=== PATIENT | female | born 1950 | race Caucasian/White ===

== ENCOUNTER 2017-10-08 00:51 | Day surgery (SDC) | payer BC ==
[2014-08-17 13:54] VITALS: Ht 180.3 cm; Wt 91.2 kg
[~2017-10-08] VITALS: Ht 180.3 cm; Wt 91.2 kg
[~2017-10-08 00:51] MED LIST: ASPI-1471 PO; ASPI-764 PO; ASPI81TA94 PO; ATEN-1 PO; ATOR20TA65 PO; CALC500T6 PO; ESTR10TA4 VG; ESTROVEN ENER PO; GLUC15002 PO; GOLYTE PO; HYDR-2966 PO; HYDR-318 PO; HYDR12.556 PO; LIDOCAINE/SOD BICARB 8.4% SYR ID ONE; LISI-355 PO; LISI-362 PO; MIDAZOLAM 2 MG/2 ML VIAL IVP PRN; MULT-820 PO; NAPR220C12 PO; NORMOSOL R SOLN(*) 1000 ML BAG 1,000 ML IV PRN; OMEG-96 PO; OXYC-823 PO; ZOST19404 SQ
[2017-10-08] MEDS ORDERED: MIDAZOLAM 2 MG/2 ML VIAL IVP PRN (06:45)
[2017-10-08] MEDS ORDERED: LIDOCAINE/SOD BICARB 8.4% SYR ID ONE (06:45)
[2017-10-08] MEDS ORDERED: NORMOSOL R SOLN(*) 1000 ML BAG 1,000 ML IV PRN (06:45)
[2017-10-08 09:58] VITALS: BP 140/96
[2017-10-08] MEDS ORDERED: PROPOFOL EMUL(*) 10MG/ML 20 ML 120 ML ONE (12:38)
[2017-10-08 12:47] VITALS: BP 86/55
[2017-10-08 12:56] VITALS: BP 97/65
--- NOTE | 2017-10-08 12:59 | Short(Outpt) Discharge Summary ---
Discharge Summary Reason for Hosp/Final Diag: (1) Family history of malignant neoplasm of gastrointestinal tract Hospital Course & Plan: Colonoscopy with polypectomy x4 completed without problems. Departure Discharge to: Home, Self Care Discharge Instructions Home Meds Active Scripts Peg/Electrolytes (GOLYTELY SOLUTION) 4,000 Ml Soln, 1 GAL PO ONCE, #1 GAL 0 Refills Prov:ANDRE VERNON MD 09/19/17 Atorvastatin Calcium (ATORVASTATIN CALCIUM) 20 Mg Tablet, 1 TAB PO QHS, #90 TAB 3 Refills Prov:CIERRA COMBS APRN TRUCK DISPATCHER-C 02/24/17 Lisinopril/Hydrochlorothiazide (LISINOPRIL-HCTZ 20-25 MG TAB) 1 Each Tablet, 1 TAB PO DAILY, #90 TAB 4 Refills Prov:CIERRA COMBS APRNP-C 12/02/16 Atenolol (ATENOLOL) 50 Mg Tablet, 1 TAB PO DAILY, #90 TAB 4 Refills Prov:CIERRA COMBS APRNP-C 12/02/16 Reported Medications Aspirin (ASPIR 81) 81 Mg Tablet.dr, 1 TAB PO QDAY, TAB 02/15/16 Naproxen Sodium (ALEVE) 220 Mg Capsule, 2 TAB PO BID Y for PAIN, CAPSULE 09/06/15 Glucosamine Hcl (GLUCOSAMINE HCL) 1,500 Mg Tablet, 1 TAB PO DAILY 07/27/14 Mv,Ca,Min/Fa/Herbal No.158 (ESTROVEN ENERGY CAPSULE) 400 Mcg Capsule, 1 CAP PO QDAY, CAPSULE 07/27/14 Calcium Carbonate (CALCIUM) 500 Mg Tablet, 1 MG PO QDAY 07/27/14 [place]-3 Fatty Acids/Fish Oil (OMEGA 3 1,000 MG SOFTGEL) 1 Each Capsule, 1 EACH PO QDAY, CAPSULE 07/27/14 Multivitamin (MULTIVITAMINS) 1 Each Tablet, 1 TAB PO DAILY 07/27/14 Diet: Regular Activity: As Tolerated Special Instructions: Your colonoscopy was completed without any problems and your prep was excellent (Good Job!!). I removed 4 fairly large polyps from your colon and they were all sent to pathology. My office will call you in the next week to let you know what the polyps are and when your next colonoscopy should be. I may want to look again even as soon as 1 year given the size of some of the polyps to make sure nothing is growing back to keep you safe from getting cancer. I would also recommend that your children and siblings start getting colonoscopies starting at 40 years old and every 5 years. Copies to: CIERRA COMBS APRN, JOHN A MD Oct 08, 2017 12:59
[2017-10-08 13:12] VITALS: BP 117/73
[2017-10-08 13:14] VITALS: BP 113/83
== END 2017-10-08 13:26 | disposition home health service (06) ==
LOC: OR 00:51
PROVIDERS: ATTEND Surgery
DX: Z12.11 Encounter for screening for malignant neoplasm of colon (principal); Z80.0 Family history of malignant neoplasm of digestive organs; D12.3 Benign neoplasm of transverse colon; D12.5 Benign neoplasm of sigmoid colon; K63.5 Polyp of colon
CPT/HCPCS: 00811; 45385; 88305; J2704

== ENCOUNTER → 2018-03-09 | Outpatient (CLI) | payer BC ==
[2014-08-17 13:54] VITALS: BMI 27.9
[~2018-03-09] MED LIST changes: -LIDOCAINE/SOD BICARB 8.4% SYR ID ONE; -MIDAZOLAM 2 MG/2 ML VIAL IVP PRN; -NORMOSOL R SOLN(*) 1000 ML BAG 1,000 ML IV PRN
[2018-03-09 08:34] LABS: PLATELET COUNT, AUTOMATED 268 K/uL (150-450)
== END ==
LOC: LAB 07:59
PROVIDERS: ATTEND Nurse Practitioner Family
DX: I10 Essential (primary) hypertension (principal)
CPT/HCPCS: 36415; 82040; 82247; 82310; 82374; 82435; 82465; 82565; 82947; 83718; 84075; 84132; 84155; 84295; 84443; 84450; 84460; 84478; 84520; 85025

== ENCOUNTER → 2018-08-18 | Outpatient (CLI) | payer BC, MEDICARE ==
[2014-08-17 13:54] VITALS: BMI 27.9
[2018-08-18 08:53] LABS: PLATELET COUNT, AUTOMATED 274 K/uL (150-450)
== END ==
LOC: LAB 08:40
PROVIDERS: ATTEND Nurse Practitioner Family
DX: I10 Essential (primary) hypertension (principal)
CPT/HCPCS: 36415; 82040; 82247; 82310; 82374; 82435; 82565; 82947; 84075; 84132; 84155; 84295; 84443; 84450; 84460; 84520; 85025

== ENCOUNTER → 2018-08-19 | Outpatient (CLI) | payer BC, MEDICARE ==
[2014-08-17 13:54] VITALS: BMI 27.9
--- NOTE | 2018-08-19 13:24 | EKG ---
FACILITY: [facility] [place] PATIENT NAME: OPAL AGUILAR : [id number] MR: [id number] V: [id number] EXAM DATE: ORDERING PHYSICIAN: TRUE DALEY TECHNOLOGIST: ENRRIQUE Delarosa Reason : PRE-OP Blood Pressure : / mmHG Vent. Rate : 059 BPM Atrial Rate : 059 BPM P-R Int : 196 ms QRS Dur : 092 ms QT Int : 442 ms P-R-T Axes : 054 055 071 degrees QTc Int : 437 ms Sinus bradycardia Otherwise normal ECG When compared with ECG of 25-JUL-2014 10:36, No significant change was found Confirmed by ANDRE TANG ([id number]) on 08/20/2018 6:36:21 AM Referred By: EDI Confirmed By:ANDRE TANG
== END ==
LOC: LAB 10:59
PROVIDERS: ATTEND Orthopaedic Surgery
DX: Z01.812 Encounter for preprocedural laboratory examination (principal); Z01.810 Encounter for preprocedural cardiovascular examination; R00.1 Bradycardia, unspecified; M17.11 Unilateral primary osteoarthritis, right knee
CPT/HCPCS: 81001; 93005

== ENCOUNTER 2018-09-08 01:39 | Inpatient (IN) | payer BC, MEDICARE ==
[2018-09-07 13:26] LABS: INR 0.93
--- NOTE | 2018-09-07 14:15 | LEVENE H&P ---
DATE OF ADMISSION: September 08, 2018 IDENTIFICATION/CHIEF COMPLAINT The patient is a 68-year-old woman with a chief complaint of right knee pain. HISTORY OF PRESENT ILLNESS The patient has a longstanding history of knee arthritis that has been progressively painful and debilitating, refractory to conservative measures. Surgery is indicated to relieve symptoms after failure of nonoperative measures. PAST MEDICAL HISTORY Notable for hypertension well controlled on medication. PAST SURGICAL HISTORY 1. Noted for contralateral knee replacement. 2. Colonoscopy times 2. 3. Hysterectomy. ALLERGIES NO KNOWN DRUG ALLERGIES CURRENT MEDICATIONS 1. Lisinopril/Hydrochlorothiazide 25 mg p.o. q day. 2. Atenolol 1 p.o. q day. 3. Aspirin 81 mg p.o. q day. 4. Vitamins. FAMILY HISTORY Notable for a father with OK and colon cancer. Mother with hypertension and stroke. SOCIAL HISTORY Notable for smoking a pack a day for 30 years. She quit at age 52. She drinks alcohol on occasional social circumstance, otherwise negative. Denies abuse. REVIEW OF SYSTEMS Noncontributory. PHYSICAL EXAMINATION GENERAL: This is a well-developed, well-nourished female who appears stated age. HEENT: Normocephalic, atraumatic. Extraocular muscles intact. NECK: Supple, non-tender. LUNGS: Clear to auscultation bilaterally. HEART: Regular rate and rhythm. ABDOMEN: Benign. ORTHOPEDIC EXAMINATION The right knee has valgus alignment. This is passively correctable. She has an effusion present. She is mildly stiff in the end range, but has supple range of motion, extensive function is intact. RADIOGRAPHS Demonstrate endstage knee degenerative joint disease and valgus alignment. ASSESSMENT Right knee endstage degenerative joint disease progressively painful and debilitating, refractory to conservative care. PLAN Per patient request, we are going to proceed with total knee arthroplasty. The nature of the procedure, the risks, benefits, the anticipated rehabilitative course were reviewed. Risks include but are not limited to , major medical or anesthetic complication, infection, neurovascular injury, blood transfusion, stiffness, scarring, fracture, tendon rupture, instability, implant loosening, migration or failure, persistent or recurrent pain or symptoms, need for additional surgery and other unforeseen. She understands and wishes to proceed. A signed permit is placed in the chart. No guarantees are given or implied. JAYME
[2018-09-08] VITALS (13 sets, daily range): BP systolic 91–126; BP diastolic 52–84; Ht 180.3 cm; Wt 93.9 kg
[~2018-09-08] VITALS: Ht 180.3 cm; Wt 93.9 kg
[2018-09-08] MEDS ORDERED: ACETAMINOPHEN 500 MG TAB PO ONE (08:45)
[2018-09-08] MEDS ORDERED: MIDAZOLAM 2 MG/2 ML VIAL IVP PRN (08:45)
[2018-09-08] MEDS ORDERED: PREGABALIN 150 MG CAPSULE PO ONE (08:45)
[2018-09-08] MEDS ORDERED: FAMOTIDINE 20 MG TAB PO ONE (08:45)
[2018-09-08] MEDS ORDERED: NORMOSOL R SOLN(*) 1000 ML BAG 1,000 ML IV PRN ×2 (08:45→13:10)
[2018-09-08] MEDS ORDERED: CELECOXIB 200 MG CAP PO ONE (08:45)
[2018-09-08] MEDS ORDERED: ceFAZolin(*) 2GM/D5W 50ML 50 ML IVPB ONE (08:45)
[2018-09-08] MEDS ORDERED: ROPIVACAINE/EPI/CLONIDINE/KET 50 ML SYRINGE INJ ONE (08:45)
[2018-09-08] MEDS ORDERED: TRANEXAMIC AC 1000 MG/10ML SDV 1,000 MG in DEXTROSE 5% 50 ML BAG 50 ML IV ONE (08:45)
[2018-09-08] MEDS ORDERED: LIDOCAINE/SOD BICARB 8.4% SYR ID ONE (08:45)
[2018-09-08] MEDS ORDERED: KETAMINE HCL-NS 50 MG/5 ML SYR ONE (08:48)
[2018-09-08] MEDS ORDERED: fentaNYL CITR 100 MCG/2 ML AMP ONE (08:48)
[2018-09-08] MEDS ORDERED: DEXAMETHASONE SOD PHOS 10MG/ML ONE (08:48)
[2018-09-08] MEDS ORDERED: ONDANSETRON 4 MG/2 ML VIAL ONE (08:48)
[2018-09-08] MEDS ORDERED: PROPOFOL EMUL(*) 10MG/ML 20 ML 20 ML ONE (08:48)
[2018-09-08] MEDS ORDERED: LIDOCAINE MPF 1% 5 ML VIAL ONE (08:48)
[2018-09-08] MEDS ORDERED: VANCOMYCIN 1 GM VIAL ONE (10:16)
[2018-09-08] MEDS ORDERED: ePHEDrine 25 MG/5 ML DISP.SYR IVP ONE (10:52)
[2018-09-08] MEDS ORDERED: NS 0.9% IRRIGATION 1000ML PLCT IR ONE (11:43)
[2018-09-08] MEDS ORDERED: LACTATED RINGER 3000 ML BAG IR ONE (11:44)
[2018-09-08] MEDS ORDERED: diphenhydrAMINE 50 MG/ML VIAL IVP PRN (13:10)
[2018-09-08] MEDS ORDERED: ZOLPIDEM TARTRATE 5 MG TAB PO PRN (13:10)
[2018-09-08] MEDS ORDERED: FLUSH 10 ML SYR IVP PRN (13:10)
[2018-09-08] MEDS ORDERED: DIAZEPAM 5 MG TAB PO PRN (13:10)
[2018-09-08] MEDS ORDERED: BENZOCAINE/MENTHOL 1 EACH LOZG PO PRN (13:10)
[2018-09-08] MEDS ORDERED: PROMETHAZINE 25 MG/ML 1 ML AMP IVP PRN (13:10)
[2018-09-08] MEDS ORDERED: BISACODYL 10 MG SUPP PR PRN (13:10)
[2018-09-08] MEDS ORDERED: diphenhydrAMINE 25 MG CAP PO PRN (13:10)
[2018-09-08] MEDS ORDERED: ACETAMINOPHEN 325 MG TAB PO PRN (13:10)
[2018-09-08] MEDS ORDERED: MAGNESIUM HYDROXIDE* 30ML UDCP PO PRN (13:10)
--- NOTE | 2018-09-08 13:22 | OPERATIVE REPORT 1 ---
EVENT DATE: September 08, 2018 SURGEON: Arturo Terry MD ANESTHESIOLOGIST: Gil Padron MD ANESTHESIA: General plus spine. OUTREACH TEAM MEMBER: Subhash Carrillo PA-C PREOPERATIVE DIAGNOSIS Right knee degenerative joint disease. POSTOPERATIVE DIAGNOSIS Right knee degenerative joint disease. PROCEDURE PERFORMED Right total knee arthroplasty. ESTIMATED BLOOD LOSS Minimal. DRAINS None. SPECIMENS None. COMPLICATIONS None apparent. TOURNIQUET TIME 46 minutes. IMPLANTS USED [employer] software Triathlon Knee System with a 6 right PS femur, 7 standard tibial baseplate, a 36 mm universal symmetric all polyethylene patella button, 11 mm PS tibial tray, polyethylene X3. INDICATIONS Desi is a 68-year-old woman with intractable pain and disability related to endstage knee arthritis. Surgery is indicated to relieve symptoms after failure of nonoperative measures. DESCRIPTION OF PROCEDURE The patient was taken to the operating room and placed supine on the operating table. A spinal block was administered by the anesthesiologist. General anesthesia was induced. Standard antibiotics and TXA were administered IV. The right lower extremity was prepped and draped in the usual sterile fashion for knee arthroplasty. The limb was exsanguinated with an Esmarch bandage. The tourniquet was inflated to 250 mmHg. A midline longitudinal incision was made and carried down through the skin and subcutaneous tissue to the extensor mechanism. A full-thickness flap was developed far enough medially to allow medial parapatellar arthrotomy to be performed. The patella was everted. The knee was brought into flexed position. The fat pad, anterior horns of the menisci and cruciate ligaments were debrided. Subperiosteal capsule was released and performed circumferentially 1 cm around the upper plateau to start to balance the knee. A step drill was used to enter the distal femur. A 10- inch long alignment guide was used to engage the isthmus. The cut was set for 6 degrees of valgus relative to anatomic axis. A 10 mm resection block was applied and pinned. Cut was made with an oscillating saw. The AP sizing guide was applied to the distal femur, positioned for 3 degrees of external rotation over the posterior condyles. There was no hypoplasia of the condyle and this matches up nicely with the wide sized alignment in the epicondylar axis. The size 6 is optimal without risk of notching. The four-in-one cutting block was applied. Anterior, posterior, posterior chamfer and anterior chamfer cuts were made respectively. A PS block was applied and centered mediolateral and the bone was removed from the box. The trial femur has nice [id number] fit. Attention was turned to the tibial preparation. The extramedullary guide was applied and positioned for varus, valgus, posterior slope and rotation. This was set to resect 2 mm from the relatively deficient lateral tibial plateau and dropped down another 1 to 2 mm to ensure an adequate cut. The block was pinned. Extramedullary alignment check is made and cuts made with an oscillating saw. After osteophyte removal, the lateral space remains tight in both flexion and extension. The popliteus is recessed and the IT band is released off Gerdy's tubercle. The gap subsequently balanced in flexion and extension with no additional releases required. The final tibial preparation consisted of ensuring appropriate rotational and translational position of the component. The box was reamed, cut and is punched. The patella is taken from the starting thickness of 24 to a residual of 14 with a patellar clamp and oscillating saw. A 36 provides optimal bony coverage without soft tissue overhang. The lug holes were drilled. The patella tracts nicely with a no-touch technique. Surfaces were then copiously lavaged. The components were cemented in a single stage. The 11 PS tibial tray liner fills up the gap ideally without allowing the knee to drop to full extension without hyperextension, providing optimal soft tissue tension and stability. The tourniquet was deflated. The tray was lavaged. All loose debris was removed from the joint and knee. Final liner is impacted into the baseplate. Joint is reduced. Arthrotomy was closed in flexion with #2 Ethibond, subcutaneous tissue with 3-0 Vicryl and the skin with surgical edmundo. Xeroform was applied followed by a dry, sterile dressing and a compression wrap. The patient was awakened from the anesthesia and taken to the recovery room in stable condition, having tolerated the procedure well. Plan is for standard TKA rehab protocol. [facility]
--- NOTE | 2018-09-08 14:27 | Hospitalist Consultation ---
History of Present Illness Requesting Physician Dr. Terry Reason for Consult Medical Management Chief Complaint s/p right total knee replacement History of Present Illness She was admitted s/p right total knee replacement. It is reported the surgery went well and without complication. History Problems: (1) HTN (hypertension) Status: Chronic Home Meds Active Scripts Atenolol (ATENOLOL) 50 Mg Tablet, 1 TAB PO DAILY, #90 TAB 2 Refills Prov:CIERRA COMBS APRN-C 08/24/18 Lisinopril/Hydrochlorothiazide (LISINOPRIL-HCTZ 20-25 MG TAB) 1 Each Tablet, 1 TAB PO DAILY, #90 TAB 2 Refills Prov:CIERRA COMBS APRN-C 08/24/18 Reported Medications Aspirin (ASPIR 81) 81 Mg Tablet., 1 TAB PO QODAY, TAB 02/15/16 Naproxen Sodium (ALEVE) 220 Mg Capsule, 2 TAB PO BID PRN for PAIN, CAPSULE 09/06/15 Glucosamine Hcl (GLUCOSAMINE HCL) 1,500 Mg Tablet, 1 TAB PO DAILY 07/27/14 Mv,Ca,Min/Fa/Herbal No.158 (ESTROVEN ENERGY CAPSULE) 400 Mcg Capsule, 1 CAP PO QDAY, CAPSULE 07/27/14 Calcium Carbonate (CALCIUM) 500 Mg Tablet, 1 MG PO QDAY 07/27/14 [place]-3 Fatty Acids/Fish Oil (OMEGA 3 1,000 MG SOFTGEL) 1 Each Capsule, 1 EACH PO QDAY, CAPSULE 07/27/14 Discontinued Reported Medications Multivitamin (MULTIVITAMINS) 1 Each Tablet, 1 TAB PO DAILY 07/27/14 Discontinued Scripts Atorvastatin Calcium (ATORVASTATIN CALCIUM) 20 Mg Tablet, 1 TAB PO QHS, #90 TAB 3 Refills Prov:CIERRA COMBS APRN-C 02/24/17 Allergies: Coded Allergies: No Known Drug Allergies (Unverified , 07/27/14) Patient History: FH: colon cancer FATHER, Onset:69 FH: coronary artery bypass surgery FATHER FH: depression MOTHER, , Age:59 FH: heart attack FATHER FH: hypertension MOTHER, , Age:59 FH: leukemia BROTHER OR SISTER (in remission) FH: stroke MOTHER, , Age:59 Malignant neoplasm of gastrointestinal tract No pertinent family history BROTHER OR SISTER BROTHER OR SISTER BROTHER OR SISTER BROTHER OR SISTER Hx Smoking: Yes Smoking Status: Former Smoker Caffeine Intake: Coffee Caffeine/Cups Per Day: 4C Hx Alcohol Use: Yes Hx Substance Use Disorder: No Social Drug Use: Never Review of Systems All Systems Reviewed/Normal: Yes, Except as Noted Exam Vital Signs Vital Signs Date Time Temp Pulse Resp B/P (MAP) Pulse Ox O2 Delivery O2 Flow Rate FiO2 09/08/18 14:11 97 Nasal Cannula 3.0 09/08/18 14:00 55 18 09/08/18 13:57 97.6 104/78 (87) General Appearance: Alert, Awake, No Acute Distress, Afebrile Neuro: No Gross deficits Cardiovascular: Regular Rate and Rhythm Respiratory: No Respiratory Distress, Clear to Auscultation GI: Abd Soft and Non-Tender Psych: Alert & Oriented X3, Appropriate Mood & Affect Assessment and Plan Problems: (1) S/P total knee arthroplasty Status: Acute Assessment & Plan: Followed by Dr. Terry. She will be placed on Aspirin for DVT prophylaxis. She has no history of DVT or PE. (2) HTN (hypertension) Status: Chronic Assessment & Plan: She is on chronic treatment with Atenolol, Lisinopril/HCTZ. Atenolol and Lisinopril have been restarted with hold parameters. We will hold HCTZ at this time. Venous Thromboembolism Antithrombotics Is Pt On Any Antithrombotics?: No Exam Sepsis Risk: No Definite Risk Problem Qualifiers (1) S/P total knee arthroplasty: Laterality: right Qualified Codes: Z96.651 - Presence of right artificial knee joint (2) HTN (hypertension): Hypertension type: essential hypertension Qualified Codes: I10 - Essential (primary) hypertension SHARI LOPEZ FICTION AND NONFICTION AUTHOR Sep 08, 2018 14:27
--- NOTE | 2018-09-08 14:28 | RADIOLOGY IMAGING REPORT ---
FACILITY: PATIENT NAME: Desi Oleary : 1950 MR: [id number] V: [id number] EXAM DATE: ORDERING PHYSICIAN: TRUE DALEY TECHNOLOGIST: Location: [facility] Patient: Desi Oleary : 1950 Visit/Account:[id number] Date of Sevice: 09/08/2018 KNEE LIMITED RIGHT HISTORY: POST-OP KNEE PLACEMENT Additional history: None COMPARISON: None. FINDINGS: Patient status post a right knee arthroplasty. Orthopedic hardware unremarkable. Iatrogenic air is seen in the joint. Normal anatomic alignment. IMPRESSION: Status post right total knee arthroplasty unremarkable in appearance. Report Dictated By: Rob Hinojosa MD at 09/08/2018 2:23 PM Report E-Signed By: Rob Hinojosa MD at 09/08/2018 2:24 PM WSN:SCOUT
[2018-09-08] MEDS: CELECOXIB 200 MG CAP PO SCH (16:20)
[2018-09-08] MEDS: APAP/HYDROCODONE 325/7.5 TAB PO PRN (17:20)
--- NOTE | 2018-09-08 17:20 | NUR ---
Physical Therapy Impression PT eval completed. Pt ambulated to/from BR with CGA/SBA. Physical Therapy Goals 1. Pt to be SBA/Mod indep for bed mobility 2. Pt to be SBA/Mod indep for transfers 3. Pt to be SBA/Mod indep for ambulation x 100' with FWW 4. Pt to deng up/down platform step to access home Patient's Goals
[2018-09-08] MEDS: ceFAZolin(*) 1 GM VIAL 1 GM in NS(*) 0.9% 100 ML ADDVANT BAG 100 ML IVPB SCH (18:18)
[2018-09-09] MEDS: ceFAZolin(*) 1 GM VIAL 1 GM in NS(*) 0.9% 100 ML ADDVANT BAG 100 ML IVPB SCH ×2 (03:27→11:02)
[2018-09-09 03:28] VITALS: BP 90/59
[2018-09-09] MEDS: APAP/HYDROCODONE 325/7.5 TAB PO PRN ×5 (03:49→23:32)
[2018-09-09 07:44] VITALS: BP 100/88
[2018-09-09] MEDS: ASPIRIN 325 MG TAB PO SCH (08:45)
[2018-09-09] MEDS: CELECOXIB 200 MG CAP PO SCH ×2 (08:45→17:34)
[2018-09-09] MEDS: LISINOPRIL 20 MG TAB PO SCH (09:00)
[2018-09-09] MEDS: ATENOLOL 50 MG TAB PO SCH (09:00)
[2018-09-09 10:30] VITALS: BP 96/58
--- NOTE | 2018-09-09 11:02 | Hospitalist Progress Note ---
Subjective Progress Notes Subjective She has no complaints this morning. She had no acute events overnight. Patient Complains of: Cardiovascular: No: Chest Pain Respiratory: No: Shortness of Breath Physical Exam Vital Signs Date Time Temp Pulse Resp B/P (MAP) Pulse Ox O2 Delivery O2 Flow Rate FiO2 09/09/18 10:30 97.6 55 16 96/58 (71) 96 Nasal Cannula 1.5 Intake and Output 09/09/18 07:00 Intake Total 2605 ml Balance 2605 ml Intake Oral 480 ml IV Total 2125 ml # Voids 1 General Appearance: Alert, Awake, No Acute Distress, Afebrile Neuro: No Gross deficits Cardiovascular: Regular Rate and Rhythm Respiratory: No Respiratory Distress, Clear to Auscultation Psych: Alert & Oriented X3, Appropriate Mood & Affect Result Diagram: 09/09/18 0543 Assessment and Plan Problems: (1) S/P total knee arthroplasty Status: Acute Assessment & Plan: Followed by Dr. Terry. She will be placed on Aspirin for DVT prophylaxis. She has no history of DVT or PE. (2) HTN (hypertension) Status: Chronic Assessment & Plan: She is on chronic treatment with Atenolol, Lisinopril/HCTZ. Atenolol and Lisinopril have been restarted with hold parameters. We will hold HCTZ at this time. Exam Sepsis Risk: No Definite Risk Problem Qualifiers (1) S/P total knee arthroplasty: Laterality: right Qualified Codes: Z96.651 - Presence of right artificial knee joint (2) HTN (hypertension): Hypertension type: essential hypertension Qualified Codes: I10 - Essential (primary) hypertension SHARI LOPEZ Sep 09, 2018 11:02
[2018-09-09 11:30] VITALS: BP 119/71
--- NOTE | 2018-09-09 11:50 | NUR ---
Physical Therapy Impression Pt making excellent progress with her own standard walker for ambulation x 150' and modified indep. Pt would benefit from addressing steps prior to d/c home. Physical Therapy Goals 1. Pt to be SBA/Mod indep for bed mobility 2. Pt to be SBA/Mod indep for transfers 3. Pt to be SBA/Mod indep for ambulation x 100' with FWW 4. Pt to deng up/down platform step to access home Patient's Goals
[2018-09-09 15:31] VITALS: BP 90/55
--- NOTE | 2018-09-09 17:33 | NUR ---
Physical Therapy Impression Pt arrived for earlier visit and pt requested PT to return later. When PT returned at 1733, pt had visitors and dinner and notes that she has been up several times with nursing and would like to defer stair trng until tomorrow. Physical Therapy Goals 1. Pt to be SBA/Mod indep for bed mobility 2. Pt to be SBA/Mod indep for transfers 3. Pt to be SBA/Mod indep for ambulation x 100' with FWW 4. Pt to deng up/down platform step to access home Patient's Goals
[2018-09-09 19:32] VITALS: BP 101/66
[2018-09-10 03:15] VITALS: BP 124/63
[2018-09-10] MEDS: APAP/HYDROCODONE 325/7.5 TAB PO PRN ×3 (03:28→11:10)
[2018-09-10 07:09] VITALS: BP 95/56
[2018-09-10] MEDS: ASPIRIN 325 MG TAB PO SCH (08:29)
[2018-09-10] MEDS: CELECOXIB 200 MG CAP PO SCH (08:29)
[2018-09-10] MEDS ORDERED: HYDR-389 PO (08:58)
[2018-09-10] MEDS: ATENOLOL 50 MG TAB PO SCH (09:00)
[2018-09-10] MEDS: LISINOPRIL 20 MG TAB PO SCH (09:00)
--- NOTE | 2018-09-10 09:19 | NUR ---
Physical Therapy Impression The patient is safe to d/c home from a mobility stand point when medically appropriate. Pt is Jaquelin for bed mobility, transfers and ambulation with use of RW. PT instructed patient in stair negotiation with good re-demonstration by pt. Pt will f/u with OP PT services. Home with CPM Physical Therapy Goals Patient's Goals
[2018-09-10] MEDS ORDERED: ASPI-757 PO (10:15)
[2018-09-10 11:09] VITALS: BP 100/73
--- NOTE | 2018-09-10 12:08 | Hospitalist Progress Note ---
Subjective Progress Notes Subjective She was admitted after knee replacement. She has no complaints this morning. She had no acute events overnight. Her blood pressures have been decreased throughout admission at 90's systolic. She has not required any blood pressure medication. Patient Complains of: Neurological: No: Dizziness Cardiovascular: No: Chest Pain Respiratory: No: Shortness of Breath Physical Exam Vital Signs Date Time Temp Pulse Resp B/P (MAP) Pulse Ox O2 Delivery O2 Flow Rate FiO2 09/10/18 11:09 100/73 (82) 09/10/18 07:30 93 Room Air 09/10/18 07:09 98.0 70 18 09/10/18 03:49 2.0 Intake and Output 09/10/18 00:00 Intake Total 1519 ml Balance 1519 ml Intake Oral 1310 ml IV Total 209 ml # Voids 5 General Appearance: Alert, Awake, No Acute Distress, Afebrile Neuro: No Gross deficits Cardiovascular: Regular Rate and Rhythm Respiratory: No Respiratory Distress, Clear to Auscultation Extremities: Warm, Perfused; No Edema Psych: Alert & Oriented X3, Appropriate Mood & Affect Result Diagram: 09/09/18 0543 Assessment and Plan Problems: (1) S/P total knee arthroplasty Status: Acute Assessment & Plan: Followed by Dr. Terry. She was placed on Aspirin for DVT prophylaxis. She has no history of DVT or PE. (2) HTN (hypertension) Status: Chronic Assessment & Plan: She is on chronic treatment with Atenolol, Lisinopril/HCTZ. Atenolol and Lisinopril were restarted with hold parameters, but were not given. At this time, I have instructed patient to hold all blood pressure medications. She has been 90's systolic. Her pulse has been average 55-60. She will follow up with her PCP next week regarding her BP. Copies to: CIERRA COMBS APRN DESK MONITOR-C ; Exam Sepsis Risk: No Definite Risk Problem Qualifiers (1) S/P total knee arthroplasty: Laterality: right Qualified Codes: Z96.651 - Presence of right artificial knee joint (2) HTN (hypertension): Hypertension type: essential hypertension Qualified Codes: I10 - Essential (primary) hypertension SHARI LOPEZ DESK MONITOR Sep 10, 2018 12:08
== END 2018-09-10 11:20 | disposition home or self-care (01) | DRG 470 ==
LOC: OR 01:39 → MED 13:50 → OBSVTOIN 13:50
PROVIDERS: ADMIT Orthopaedic Surgery; ATTEND Orthopaedic Surgery
PROC: 0SRC0J9 Replacement of Right Knee Joint with Synthetic Substitute, Cemented, Open Approach (ICD-10-PCS; principal; 2018-09-08 10:39)
DX: M17.11 Unilateral primary osteoarthritis, right knee (principal); I10 Essential (primary) hypertension; E78.00 Pure hypercholesterolemia, unspecified; Z96.651 Presence of right artificial knee joint; Z87.891 Personal history of nicotine dependence; Z90.710 Acquired absence of both cervix and uterus
CPT/HCPCS: 36415; 82310; 82374; 82435; 82565; 82947; 84132; 84295; 84520; 85610; 86850; 86900; 86901; 97161; C1713; C1776; J0690; J1100; J2001; J2250; J2405; J2704; J3010; J3370; J3490; J7050; J7060